=== PATIENT | male | born 1995 | race African-American/Black ===

== ENCOUNTER 2023-12-10 11:40 | Emergency (ER) | payer SELFPAY | END 2023-12-10 12:20 | disposition home or self-care (01) | LOC: MW.ED 11:40 | DX: L30.9 Dermatitis, unspecified (principal); Z75.8 Other problems related to medical facilities and other health care; Z79.899 Other long term (current) drug therapy | CPT/HCPCS: 99281; 99283 ==

== ENCOUNTER 2024-03-20 13:21 | Emergency (ER) | payer SELFPAY | END 2024-03-20 16:49 | disposition home or self-care (01) | LOC: MW.ED 13:21 | DX: R21 Rash and other nonspecific skin eruption (principal); Z75.8 Other problems related to medical facilities and other health care; Z79.899 Other long term (current) drug therapy | CPT/HCPCS: 99282 ==

== ENCOUNTER 2024-03-29 22:29 | Emergency (ER) | payer SELFPAY ==
[2024-03-29] MEDS: Diphtheria,Pertussis(Acell),Tetanus Vaccine 0.5 ML Syringe IM ONE (23:04)
== END 2024-03-29 23:15 | disposition home or self-care (01) ==
LOC: MW.ED 22:29
DX: S61.411A Laceration without foreign body of right hand, initial encounter (principal); Z23 Encounter for immunization; W26.8XXA Contact with other sharp object(s), not elsewhere classified, initial encounter; Y93.G1 Activity, food preparation and clean up
CPT/HCPCS: 12002; 90471; 90715; 99282-25

== ENCOUNTER 2024-04-04 14:15 | Emergency (ER) | payer SELFPAY | END 2024-04-04 14:27 | disposition left against medical advice (07) | LOC: MW.ED 14:15 | DX: S61.411D Laceration without foreign body of right hand, subsequent encounter (principal); X58.XXXD Exposure to other specified factors, subsequent encounter | CPT/HCPCS: 99281 ==

== ENCOUNTER 2024-07-06 11:46 | Emergency (ER) | payer SELFPAY | END 2024-07-06 12:48 | disposition home or self-care (01) | LOC: MW.ED 11:46 | DX: B35.9 Dermatophytosis, unspecified (principal); Z75.3 Unavailability and inaccessibility of health-care facilities | CPT/HCPCS: 99282 ==